=== PATIENT | female | born 1930 | race Caucasian/White ===

== ENCOUNTER 2018-04-21 17:30 | Emergency (ER) | payer OTHER ==
[~2018-04-21] VITALS: Ht 147.3 cm; Wt 47.2 kg
[~2018-04-21 17:30] MED LIST: ALENDRONATE SOD70 M2 PO; HEP5I SC; L20 PO; OSCD PO; TEN25 PO; ZES20 PO
[2018-04-21 19:59] VITALS: BP 141/60
== END 2018-04-21 19:47 | disposition home or self-care (01) ==
LOC: ED 17:30
DX: S39.012A Strain of muscle, fascia and tendon of lower back, initial encounter (principal); M47.897 Other spondylosis, lumbosacral region; I10 Essential (primary) hypertension; Z98.890 Other specified postprocedural states; X58.XXXA Exposure to other specified factors, initial encounter; Y93.89 Activity, other specified; Y92.89 Other specified places as the place of occurrence of the external cause; Y99.8 Other external cause status
CPT/HCPCS: J1885

== ENCOUNTER 2018-10-22 15:15 | Emergency (ER) | payer OTHER ==
[~2018-10-22] VITALS: Ht 152.4 cm; Wt 44.5 kg
[2018-10-22 15:22] VITALS: Ht 152.4 cm; Wt 44.5 kg
[2018-10-22 17:15] LABS: UA SPECIFIC GRAVITY <=1.005 (1.005-1.035); microscopic required? YES; urine erythrocyte NEGATIVE (NEGATIVE)
[2018-10-22 17:17] LABS: CHLORIDE SERUM 92 mmol/L (98-107); GLUCOSE SERUM 103 mg/dL (74-106); POTASSIUM SERUM 4.1 mmol/L (3.5-5.1); SODIUM SERUM 127 mmol/L (136-145)
[2018-10-22 17:18] LABS: BASOPHIL % 0.2 % (0-2)
[2018-10-22 17:20] LABS: ALT/SGPT 56 U/L (14-59); AST/SGOT 71 U/L (15-37); BILIRUBIN TOTAL 2.3 mg/dL (0.20-1.00); CHOLESTEROL 167 mg/dL (<200); LIPASE 242 IU/L (73-393); PLATELET COUNT 427 x10^3mcL (130-400); RED CELL DISTRIBUTION WIDTH 16.1 % (11.5-14.5); TRIGLYCERIDES 32 mg/dL (<150)
[2018-10-22 17:23] LABS: ALBUMIN 2.6 g/dL (3.4-5.0); CHOLESTEROL/HDL RATIO 6.4; HDL CHOLESTEROL 26 mg/dL (40-60)
[2018-10-22 17:29] LABS: T3 TOTAL 0.71 ng/mL
[2018-10-22 17:40] LABS: ALKALINE PHOSPHATASE 1239 U/L (46-116)
[2018-10-22 18:07] LABS: FREE T4 1.1 ng/dL (0.76-1.46); FREE THYROXINE INDEX 2.3 ug/dL (1.4-4.5); T4(THYROXINE) 6.5 ug/dL (4.7-13.3)
[2018-10-23 05:17] VITALS: BP 118/35
== END 2018-10-23 05:17 | disposition short-term general hospital (02) ==
LOC: ED 15:15
PROVIDERS: Specialist
DX: K83.8 Other specified diseases of biliary tract (principal); E87.1 Hypo-osmolality and hyponatremia; N39.0 Urinary tract infection, site not specified; R60.0 Localized edema; N13.30 Unspecified hydronephrosis; I10 Essential (primary) hypertension; Z90.49 Acquired absence of other specified parts of digestive tract; Z90.710 Acquired absence of both cervix and uterus
CPT/HCPCS: 83880; 84439; J0696; J3490; Q0092; Q9967

== ENCOUNTER 2019-03-22 20:39 | Emergency (ER) | payer OTHER ==
[~2019-03-22] VITALS: Ht 157.5 cm; Wt 43.5 kg
[2019-03-23 00:01] LABS: BASOPHIL % 0.3 % (0-2); PLATELET COUNT 224 x10^3mcL (130-400)
[2019-03-23 00:02] LABS: RED CELL DISTRIBUTION WIDTH 14.7 % (11.5-14.5)
[2019-03-23 00:26] LABS: CARBON DIOXIDE 24.1 mmol/L (21-32); CHLORIDE SERUM 104 mmol/L (98-107); CREATININE SERUM 0.8 mg/dL (0.6-1.0); GLUCOSE SERUM 93 mg/dL (74-106); POTASSIUM SERUM 3.9 mmol/L (3.5-5.1); SODIUM SERUM 134 mmol/L (136-145); TOTAL PROTEIN, SERUM 6.8 g/dL (6.4-8.2)
[2019-03-23 00:27] LABS: ALBUMIN 2.5 g/dL (3.4-5.0); ALKALINE PHOSPHATASE 1195 U/L (46-116); ALT/SGPT 44 U/L (14-59); AST/SGOT 53 U/L (15-37); BILIRUBIN TOTAL 0.7 mg/dL (0.20-1.00); CALCIUM 8.6 mg/dL (8.5-10.1)
[2019-03-23 03:06] VITALS: BP 135/70
== END 2019-03-23 03:06 | disposition home or self-care (01) ==
LOC: ED 20:39
PROVIDERS: Emergency Medicine
DX: R60.1 Generalized edema (principal); I10 Essential (primary) hypertension; Z90.49 Acquired absence of other specified parts of digestive tract; Z98.890 Other specified postprocedural states
CPT/HCPCS: 36415; 83880; Q0092

== ENCOUNTER 2020-02-16 13:16 | Emergency (ER) | payer OTHER, MEDICAID ==
[~2020-02-16] VITALS: Ht 152.4 cm; Wt 49.9 kg
[2020-02-16 13:29] VITALS: Ht 152.4 cm; Wt 49.9 kg
[2020-02-16 14:36] LABS: CALCIUM 8.6 mg/dL (8.5-10.1); CARBON DIOXIDE 21.2 mmol/L (21-32); CHLORIDE SERUM 101 mmol/L (98-107); CREATININE SERUM 1.1 mg/dL (0.6-1.0); GLUCOSE SERUM 99 mg/dL (74-106); POTASSIUM SERUM 4.8 mmol/L (3.5-5.1); SODIUM SERUM 134 mmol/L (136-145)
[2020-02-16 15:00] LABS: BASOPHIL % 0.2 % (0.2-1.3); PLATELET COUNT 258 x10^3mcL (179-408); RED CELL DISTRIBUTION WIDTH 14.1 % (12.3-17.7)
[2020-02-16 15:03] LABS: UA SPECIFIC GRAVITY 1.015 (1.005-1.035); microscopic required? YES; urine erythrocyte NEGATIVE (NEGATIVE)
[2020-02-16 15:27] LABS: rbc morphology (normal/abnorm) NORMAL (NORMAL)
[2020-02-16 15:55] VITALS: BP 159/51
== END 2020-02-16 15:55 | disposition home or self-care (01) ==
LOC: ED 13:16
PROVIDERS: Emergency Medicine
DX: R60.9 Edema, unspecified (principal)